=== PATIENT | female | born 1985 | race African-American/Black ===

== ENCOUNTER 2021-09-27 12:16 | Emergency (ER) | payer MEDICAID ==
[~2021-09-27] VITALS: Ht 162.6 cm; Wt 65.9 kg
[2021-09-27] MEDS ORDERED: KETOROLAC 60 MG/2 ML VIAL. IM ONE (13:15)
[2021-09-27] MEDS ORDERED: ORPHENADRINE CITRATE 60 MG/2 ML VIAL. IM ONE (13:15)
[2021-09-27] MEDS ORDERED: ACETAMINOPHEN 325 MG TABLET. PO ONE (13:30)
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
[2021-09-27 14:03] VITALS: BP 123/65
== END 2021-09-27 14:35 | disposition home or self-care (01) ==
LOC: ER 12:16
DX: O9A.211 Injury, poisoning and certain other consequences of external causes complicating pregnancy, first trimester (principal); S20.222A Contusion of left back wall of thorax, initial encounter; Z3A.00 Weeks of gestation of pregnancy not specified; Z87.891 Personal history of nicotine dependence; V43.52XA Car driver injured in collision with other type car in traffic accident, initial encounter; Y92.488 Other paved roadways as the place of occurrence of the external cause; Y93.89 Activity, other specified; Y99.8 Other external cause status
CPT/HCPCS: 81025; 99282